=== PATIENT | female | born 1965 | race Caucasian/White ===

== ENCOUNTER 2023-01-26 09:35 | Emergency (ER) | payer BC ==
[2023-01-26] MEDS ORDERED: Sodium Chloride 0.9% 10 ML Syringe FLUSH PRN (11:03)
[2023-01-26] MEDS ORDERED: Sodium Chloride 0.9% 1,000 ML IV STA (11:11)
[2023-01-26 11:37] LABS: BASOPHILS ABSOLUTE AUTO 0.02 K/mm3 (0.01-0.08); BASOPHILS PERCENT AUTO 0.2 % (0.1-1.2); EOSINOPHILS ABSOLUTE AUTO 0.01 K/mm3 (0.04-0.36); EOSINOPHILS PERCENT AUTO 0.1 (0.7-5.8); HEMATOCRIT 43.9 % (34.1-44.9); HEMOGLOBIN 14.4 gm/dl (11.2-15.7); IMMATURE GRAN ABSOLUTE AUTO 0.02 K/mm3 (0.00-0.10); IMMATURE GRAN PERCENT AUTO 0.2 % (<=1.0); LYMPHOCYTES PERCENT AUTO 8.5 % (19.3-51.7); MEAN CORPUSCULAR HEMOGLOBIN 30.2 pg (25.6-32.2); MEAN CORPUSCULAR HGB CONC 32.8 g/dl (32.2-35.5); MEAN PLATELET VOLUME 9.3 fl (9.4-12.3); MONOCYTES PERCENT AUTO 3.8 % (4.7-12.5); NEUTROPHILS ABSOLUTE AUTO 9.29 K/mm3 (1.56-6.13); NEUTROPHILS PERCENT AUTO 87.2 % (34.0-71.1); PLATELET COUNT,PLT 287 K/mm3 (182-369); RED BLOOD CELL COUNT 4.77 M/mm3 (3.98-5.22); WHITE BLOOD CELL COUNT,WBC 10.64 K/mm3 (3.98-10.04)
[2023-01-26 11:53] LABS: A/G RATIO 1.1 (1-2); ALANINE AMINOTRANSFERASE,ALT 40 U/L (14-59); ALKALINE PHOSPHATASE 99 U/L (46-116); ANION GAP 13.1 (5-15); ASPARTATE AMNIOTRANSFERASE,AST 27 U/L (15-37); BILIRUBIN TOTAL 0.5 mg/dL (0.2-1.0); BLOOD UREA NITROGEN,BUN 17 mg/dL (7-18); BUN/CREATININE RATIO 21.3 (14-18); CALCIUM 9.2 mg/dL (8.5-10.1); CARBON DIOXIDE,CO2 26 mEq/L (21-32); CHLORIDE,CL 102 mEq/L (98-107); CREATININE 0.8 mg/dL (0.55-1.02); ESTIMATED GFR 86 mL/min (>60); GLUCOSE RANDOM 119 mg/dL (70-99); POTASSIUM,K 4.1 mEq/L (3.5-5.1); PROTEIN TOTAL,TP 7.8 g/dl (6.4-8.2); SODIUM,NA 137 mEq/L (136-145)
[2023-01-26 11:54] LABS: C-REACTIVE PROTEIN < 0.2 mg/dL (<1.0)
== END 2023-01-26 13:00 | disposition home or self-care (01) ==
LOC: JD.ED 09:35
DX: R55 Syncope and collapse (principal); Z79.899 Other long term (current) drug therapy; Z90.49 Acquired absence of other specified parts of digestive tract
CPT/HCPCS: 36415; 71046; 80053; 83735; 85025; 86140; 93005; 93246; 96360; 99285; J3490; J7030